=== PATIENT | male | born 1995 ===

== ENCOUNTER 2017-10-26 12:13 | Emergency (ER) | payer MEDICAID, OTHER ==
[2017-10-26 12:57] VITALS: RESP 18; TEMP 98.9; O2SAT 100
[2017-10-26] MEDS ORDERED: Lactated Ringer's 1,000 ML IVB STA (15:19)
[2017-10-26 15:39] LABS: BASO # 0.1 K/uL (0.0-0.2); BASO % 0.6 % (0.0-2.0); EOS # 0.1 K/uL (0.0-0.7); EOS % 0.7 % (0.0-4.0); HEMOGLOBIN 13.9 g/dL (12.0-18.0); LYMPH # 1.1 K/uL (1.0-4.3); MEAN CELL VOLUME 92.6 fL (80.0-94.0); MEAN CORPUSCULAR HEMOGLOBIN 31.2 pg (27.0-31.0); MEAN CORPUSCULAR HGB CONC 33.7 g/dL (33.0-37.0); MEAN PLATELET VOLUME 9.6 fL (7.2-11.7); MONO # 1.3 K/uL (0.0-0.8); MONO % 15.9 % (0.0-10.0); NEUT # 5.9 K/uL (1.8-7.0); NEUT % 69.8 % (50.0-75.0); RBC 4.47 Mil/uL (4.40-5.90); RED CELL DISTRIBUTION WIDTH 13.2 % (11.5-14.5); WHITE BLOOD COUNT 8.4 K/uL (4.8-10.8)
[2017-10-26 15:51] LABS: ALB/GLOB RATIO 1.1 (1.0-2.1); ALBUMIN 3.9 g/dL (3.5-5.0); ALT/SGPT 37 U/L (21-72); AST/SGOT 20 U/L (17-59); BLOOD UREA NITROGEN 10 mg/dL (9-20); CALCIUM 8.5 mg/dl (8.6-10.4); GFR AFRICAN-AMERICAN > 60; GFR NON-AFRICAN AMERICAN > 60
[2017-10-26 15:54] LABS: INFLUENZA A B NEGATIVE FOR FLU A/B (NEGATIVE)
[2017-10-26 16:35] LABS: URINE BILIRUBIN NEGATIVE (NEGATIVE); URINE BLOOD NEGATIVE (NEGATIVE); URINE CLARITY Clear (Clear); URINE COLOR Yellow (YELLOW); URINE GLUCOSE (UA) NORMAL (Normal); URINE LEUKOCYTE ESTERASE NEG Leu/uL (Negative); URINE NITRATE NEGATIVE (NEGATIVE); URINE PROTEIN 1+ mg/dL (NEGATIVE); URINE UROBILINOGEN NORMAL mg/dL (0.2-1.0)
--- NOTE | 2017-10-26 16:46 | C.PDOC ---
Time Seen by Provider: 10/26/17 15:03 Chief Complaint (Nursing): Flu-like Symptoms History Per: Patient Onset/Duration Of Symptoms: Days (3) Current Symptoms Are (Timing): Still Present Associated Symptoms: Chills, Myalgias, Diarrhea Severity: Moderate Additional History Per: Prior Records Past Medical History Reviewed: Historical Data, Nursing Documentation, Vital Signs Vital Signs: Last Vital Signs Temp 98.9 F 10/26/17 12:54 Pulse 116 H 10/26/17 12:54 Resp 18 10/26/17 12:54 BP 136/81 10/26/17 12:54 Pulse Ox 100 10/26/17 12:54 - Medical History PMH: HTN Surgical History: No Surg Hx Family History: States: Unknown Family Hx - Social History Hx Alcohol Use: No Hx Substance Use: No - Immunization History Hx Tetanus Toxoid Vaccination: No Hx Influenza Vaccination: No Hx Pneumococcal Vaccination: No Review Of Systems Except As Marked, All Systems Reviewed And Found Negative. Constitutional: Positive for: Fever (subjective) ENT: Negative for: Ear Pain, Nose Congestion Cardiovascular: Negative for: Chest Pain Respiratory: Negative for: Cough, Shortness of Breath Gastrointestinal: Positive for: Abdominal Pain, Diarrhea. Negative for: Vomiting, Melena, Hematochezia, Hematemesis Genitourinary: Negative for: Dysuria Musculoskeletal: Negative for: Neck Pain, Back Pain Skin: Negative for: Rash Neurological: Negative for: Weakness, Numbness, Seizures, Altered Mental Status Physical Exam - Physical Exam Appears: Non-toxic, No Acute Distress Skin: Normal Color, Warm, Dry, No Rash Head: Atraumatic, Normacephalic Eye(s): bilateral: Normal Inspection, PERRL, EOMI Throat: No Drooling, No Mass, Other (symmetrically enlarged tonsils) Neck: Normal ROM, Supple Lymphatic: No Adenopathy Cardiovascular: Rhythm Regular Respiratory: Normal Breath Sounds, No Accessory Muscle Use Gastrointestinal/Abdominal: Soft, Tenderness (mild, nonspecific), No Distention , No Guarding, No Rebound Back: No CVA Tenderness Extremity: Normal ROM Neurological/Psych: Oriented x3, Normal Motor, Normal Sensation ED Course And Treatment - Laboratory Results Result Diagrams: 10/26/17 15:36 10/26/17 15:36 Lab Interpretation: No Acute Changes O2 Sat by Pulse Oximetry: 100 Pulse Ox Interpretation: Normal Progress Note: No abdominal pain or tenderness after meds. Reassessment Condition: Improved Progress - Interventions Interventions:: Observation, Intravenous fluid - Medications Administered Intravenous: NSAID - Data Reviewed Data Reviewed: Lab, Old records - Patient Status Patient status: Mostly improved - Continuity of Care Discussed patient case with:: Patient, ED Nurse - Patient Plan Patient Plan: Discharge, F/U with PCP Disposition Counseled Patient/Family Regarding: Studies Performed, Diagnosis, Need For Followup, Rx Given - Disposition Referrals: [facility] at [facility] [Outside] Disposition: HOME/ ROUTINE Disposition Time: 16:47 Condition: IMPROVED Additional Instructions: Drink plenty of fluids. Follow up in the clinic. Return to the ER if you develop high fever, vomiting, bloody stools, worsening of symptoms or if you have any other concerns. Prescriptions: Bismuth Subsalicylate [Pepto Bismol] 2 tab PO Q1 PRN #16 ctb PRN Reason: Diarrhea Instructions: Acute Diarrhea (ED) Print Language: [place] - Clinical Impression Clinical Impression: Influenza-like illness, Diarrhea
[2017-10-26 16:56] VITALS: BP 137/77; PULSE 93
== END 2017-10-26 16:57 | disposition home or self-care (01) ==
LOC: C.ER 12:13
DX: J11.1 Influenza due to unidentified influenza virus with other respiratory manifestations (principal); R19.7 Diarrhea, unspecified
CPT/HCPCS: 80053; 81001; 85025; 86308; 87804; 96374; 99285; J1885; J7120

== ENCOUNTER 2017-10-27 07:41 | Emergency (ER) | payer MEDICAID, OTHER ==
[2017-10-27 08:05] VITALS: RESP 18
--- NOTE | 2017-10-27 08:25 | C.PDOC ---
History Of Present Illness 22-year-old male, presents to the emergency department with complaints of five- day duration of rectal pain. Patient states he was seen in clinic yesterday for same complaint and given unknown pain medication. He reports mild associated subjective fever. Denies any abdominal pain, fever, chills, shortness of breath , bloody stool, or any other associated symptoms. No other complaints at this time. Chief Complaint (Nursing): GI Problem History Per: Patient History/Exam Limitations: no limitations Onset/Duration Of Symptoms: Days Current Symptoms Are (Timing): Still Present Past Medical History Reviewed: Historical Data, Nursing Documentation, Vital Signs Vital Signs: Last Vital Signs Temp 98.4 F 10/27/17 08:40 Pulse 86 10/27/17 08:40 Resp 18 10/27/17 08:40 BP 138/78 10/27/17 08:40 Pulse Ox 99 10/27/17 08:40 - Medical History PMH: HTN Family History: States: No Known Family Hx - Social History Hx Alcohol Use: No Hx Substance Use: No - Immunization History Hx Tetanus Toxoid Vaccination: No Hx Influenza Vaccination: No Hx Pneumococcal Vaccination: No Review Of Systems Constitutional: Positive for: Fever Cardiovascular: Negative for: Chest Pain Respiratory: Negative for: Shortness of Breath Gastrointestinal: Positive for: Rectal Pain. Negative for: Vomiting, Abdominal Pain Physical Exam - Physical Exam Appears: Non-toxic, No Acute Distress Skin: Warm, Dry, No Rash Eye(s): bilateral: Normal Inspection Neck: Normal ROM Cardiovascular: Rhythm Regular, No Murmur Respiratory: Normal Breath Sounds, No Accessory Muscle Use Gastrointestinal/Abdominal: Soft, No Tenderness Rectal: Other (fissures) Extremity: Normal ROM Neurological/Psych: Oriented x3 ED Course And Treatment O2 Sat by Pulse Oximetry: 98 (RA) Disposition - Disposition Referrals: Ramu Grijalva MD [Staff Provider] - Disposition: HOME/ ROUTINE Disposition Time: 08:23 Condition: GOOD Prescriptions: Docusate [Colace] 100 mg PO TID #21 cap Hydrocortisone 2.5% (Rectal) [Anusol-HC] 30 applic [place] BID #14 tube Instructions: Rectal Bleeding (ED), Anal Fissure (ED) Forms: [employer] (Georgian) Print Language: SENEGALESE - Clinical Impression Clinical Impression: Rectal fissure - Scribe Statement The provider has reviewed the documentation as recorded by the Scribe (Terrance Ruiz) All medical record entries made by the Scribe were at my direction and personally dictated by me. I have reviewed the chart and agree that the record accurately reflects my personal performance of the history, physical exam, medical decision making, and the department course for this patient. I have also personally directed, reviewed, and agree with the discharge instructions and disposition.
--- NOTE | 2017-10-27 08:27 | C.PDOC ---
Chief Complaint (Nursing): GI Problem Past Medical History Vital Signs: Last Vital Signs Temp 98.2 F 10/27/17 08:02 Pulse 93 H 10/27/17 08:02 Resp 18 10/27/17 08:02 BP 144/82 10/27/17 08:02 Pulse Ox 98 10/27/17 08:02 - Medical History PMH: HTN Family History: States: Unknown Family Hx - Social History Hx Alcohol Use: No Hx Substance Use: No - Immunization History Hx Tetanus Toxoid Vaccination: No Hx Influenza Vaccination: No Hx Pneumococcal Vaccination: No ED Course And Treatment O2 Sat by Pulse Oximetry: 98 Disposition - Disposition Referrals: Ramu Grijalva MD [Staff Provider] - Disposition: HOME/ ROUTINE Disposition Time: 08:23 Condition: GOOD Prescriptions: Docusate [Colace] 100 mg PO TID #21 cap Hydrocortisone 2.5% (Rectal) [Anusol-HC] 30 applic [place] BID #14 tube Instructions: Rectal Bleeding (ED), Anal Fissure (ED) Print Language: ENGLISH - Clinical Impression Clinical Impression: Rectal fissure
[2017-10-27 08:41] VITALS: BP 138/78; PULSE 86; TEMP 98.4
[2017-10-27 14:25] VITALS: O2SAT 98
== END 2017-10-27 08:47 | disposition home or self-care (01) ==
LOC: C.ER 07:41
DX: K60.2 Anal fissure, unspecified (principal)

== ENCOUNTER 2017-10-28 18:27 | Emergency (ER) | payer MEDICAID ==
[2017-10-28 18:33] VITALS: O2SAT 98
--- NOTE | 2017-10-28 19:57 | C.PDOC ---
History Of Present Illness 22 y/o male, with history of HTN, presents to the ER complaining of persistent subjective fever, chills, and headache. Patient states that he was seen 2 days ago in the ER for flu-like symptoms with associated diarrhea at the time. The labwork was unremarkable. Patient was given Pepto Bismol and discharged home. Patient visited the ER yesterday complaining of rectal pain. He was diagnosed with rectal fissure. He was given topical creams and discharged home. Of note, patient ran out of his bp medications so his bp is elevated. He denies having any abdominal pain, nausea, vomiting, diarrhea, cough, congestion, sore throat, and other complaints. Time Seen by Provider: 10/28/17 19:31 Chief Complaint (Nursing): High Blood Pressure History Per: Patient History/Exam Limitations: no limitations Onset/Duration Of Symptoms: Days Current Symptoms Are (Timing): Still Present Severity: Moderate Past Medical History Reviewed: Historical Data, Nursing Documentation, Vital Signs Vital Signs: Last Vital Signs Temp 98 F 10/28/17 22:01 Pulse 89 10/28/17 22:01 Resp 16 10/28/17 22:01 BP 126/79 10/28/17 22:01 Pulse Ox 98 10/28/17 22:01 - Medical History PMH: HTN Surgical History: No Surg Hx Family History: States: No Known Family Hx - Social History Hx Alcohol Use: No Hx Substance Use: No - Immunization History Hx Tetanus Toxoid Vaccination: No Hx Influenza Vaccination: No Hx Pneumococcal Vaccination: No Review Of Systems Except As Marked, All Systems Reviewed And Found Negative. Constitutional: Positive for: Fever, Chills ENT: Negative for: Nose Congestion, Throat Pain Gastrointestinal: Negative for: Nausea, Vomiting, Abdominal Pain, Diarrhea Neurological: Positive for: Headache Physical Exam - Physical Exam Appears: Non-toxic, No Acute Distress Skin: Normal Color, Warm Head: Atraumatic, Normacephalic Eye(s): bilateral: Normal Inspection Ear(s): Bilateral: Normal Nose: Normal Oral Mucosa: Moist Throat: Normal, No Erythema, No Exudate Neck: Supple Chest: Symmetrical Cardiovascular: Rhythm Regular Respiratory: Normal Breath Sounds, No Accessory Muscle Use, No Rales, No Rhonchi , No Wheezing Extremity: Normal ROM Neurological/Psych: Oriented x3, Normal Speech, Normal Motor, Normal Sensation ED Course And Treatment - Laboratory Results Result Diagrams: 10/28/17 20:24 10/28/17 20:24 Lab Interpretation: Normal O2 Sat by Pulse Oximetry: 98 (RA) Pulse Ox Interpretation: Normal Reevaluation Time: 22:14 Reassessment Condition: Improved (Blood pressure and heart rate normal after po Lopressor.) Medical Decision Making Medical Decision Making: Plan: --Labs --Flu Swab --UA Disposition Counseled Patient/Family Regarding: Studies Performed, Diagnosis, Need For Followup, Rx Given - Disposition Referrals: [facility] [Outside] Disposition: HOME/ ROUTINE Disposition Time: 22:20 Condition: IMPROVED Prescriptions: Enalapril Maleate [Vasotec] 20 mg PO DAILY #90 tab Instructions: Hypertension (ED) Forms: [employer] (Fijian) Print Language: DANISH - Clinical Impression Clinical Impression: Hypertension - Scribe Statement The provider has reviewed the documentation as recorded by the Tereso Sutherland Provider Attestation: All medical record entries made by the Scribe were at my direction and personally dictated by me. I have reviewed the chart and agree that the record accurately reflects my personal performance of the history, physical exam, medical decision making, and the department course for this patient. I have also personally directed, reviewed, and agree with the discharge instructions and disposition.
[2017-10-28 20:33] LABS: BASO % 0.5 % (0.0-2.0); EOS # 0.2 K/uL (0.0-0.7); EOS % 2.2 % (0.0-4.0); HEMOGLOBIN 13.4 g/dL (12.0-18.0); LYMPH # 1.7 K/uL (1.0-4.3); LYMPH % 19.9 % (20.0-40.0); MEAN CELL VOLUME 91.7 fL (80.0-94.0); MEAN CORPUSCULAR HGB CONC 33.8 g/dL (33.0-37.0); MEAN PLATELET VOLUME 9.3 fL (7.2-11.7); MONO # 0.8 K/uL (0.0-0.8); MONO % 9.8 % (0.0-10.0); NEUT # 5.7 K/uL (1.8-7.0); NEUT % 67.6 % (50.0-75.0); NRBC % 0.1 % (0.0-2.0); RBC 4.32 Mil/uL (4.40-5.90); RED CELL DISTRIBUTION WIDTH 12.8 % (11.5-14.5); WHITE BLOOD COUNT 8.5 K/uL (4.8-10.8)
[2017-10-28 20:42] LABS: SQUAMOUS EPITHIAL < 1 /hpf (0-5); URINE BACTERIA RARE (<OCC); URINE BILIRUBIN NEGATIVE (NEGATIVE); URINE BLOOD NEGATIVE (NEGATIVE); URINE CLARITY Clear (Clear); URINE COLOR Yellow (YELLOW); URINE GLUCOSE (UA) NORMAL (Normal); URINE LEUKOCYTE ESTERASE NEG Leu/uL (Negative); URINE NITRATE NEGATIVE (NEGATIVE); URINE PROTEIN NEGATIVE (NEGATIVE); URINE UROBILINOGEN NORMAL mg/dL (0.2-1.0)
[2017-10-28 20:46] LABS: ALBUMIN 3.8 g/dL (3.5-5.0); ALT/SGPT 34 U/L (21-72); AST/SGOT 26 U/L (17-59); BLOOD UREA NITROGEN 9 mg/dL (9-20); CALCIUM 8.7 mg/dl (8.6-10.4); GFR AFRICAN-AMERICAN > 60; GFR NON-AFRICAN AMERICAN > 60
[2017-10-28 22:02] VITALS: BP 126/79; PULSE 89; RESP 16; TEMP 98
== END 2017-10-28 22:52 | disposition home or self-care (01) ==
LOC: C.ER 18:27
DX: I10 Essential (primary) hypertension (principal)

== ENCOUNTER 2017-11-03 19:35 | Emergency (ER) | payer MEDICAID ==
[2017-11-03 20:11] VITALS: O2SAT 100
--- NOTE | 2017-11-03 21:21 | C.PDOC ---
History Of Present Illness <DerasKaitlin WeberJocelyn - Last Filed: 11/03/17 21:48> <Yasemin Antonio - Last Filed: 11/04/17 06:20> CC: "I can't urinate" HPI: 22 year old male with past medical history of HTN who presents to the ED with the complaint that he cannot urinate. He states the last time he was able to urinate was yesterday Thursday11/02/17 at 6pm with hesitancy. He states today he had a very small urination at 3pm. He denies seeing blood in his urine yesterday. He states this has never happened before. He states he also has lower pelvic pain that started today. He denies nausea, vomiting fever, diarrhea or constipation. PMD: denies Past Medical History: HTN, rectal fissures Sexual History: denies STIs, one sexual partner this year, homosexual orientation, anal sex Surgical History: denies Medications: Enalapril 40mg po HS Allergies: NKDA Family History: Mom - HTN; Dad DM (BraedenKaitlin S.) History Per: Patient History/Exam Limitations: no limitations Onset/Duration Of Symptoms: Days Current Symptoms Are (Timing): Still Present <BraedenKaitlin S. - Last Filed: 11/03/17 21:48> <Yasemin Antonio - Last Filed: 11/04/17 06:20> Chief Complaint (Nursing): Abdominal Pain Past Medical History - Medical History PMH: HTN Family History: States: Unknown Family Hx - Social History Hx Alcohol Use: No Hx Substance Use: No - Immunization History Hx Tetanus Toxoid Vaccination: No Hx Influenza Vaccination: No Hx Pneumococcal Vaccination: No <DerasKaitlin crouchJocelyn - Last Filed: 11/03/17 21:48> Vital Signs: Last Vital Signs Temp 98.9 F 11/03/17 22:04 Pulse 95 H 11/03/17 22:04 Resp 18 11/03/17 22:04 BP 129/77 11/03/17 22:04 Pulse Ox 100 11/03/17 22:04 Review Of Systems Constitutional: Negative for: Fever, Chills Cardiovascular: Negative for: Chest Pain, Palpitations Respiratory: Negative for: Cough, Shortness of Breath Gastrointestinal: Positive for: Abdominal Pain (lower abdominal/pelvic pain ). Negative for: Nausea, Vomiting, Diarrhea, Constipation Genitourinary: Positive for: Dysuria. Negative for: Hematuria, Penile Discharge , Penile Pain <Kaitlin Deras - Last Filed: 11/03/17 21:48> Physical Exam - Physical Exam Appears: Well Skin: Normal Color Head: Atraumatic Eye(s): bilateral: Normal Inspection, PERRL, EOMI Oral Mucosa: Moist Cardiovascular: Rhythm Regular, No Murmur Respiratory: Normal Breath Sounds, No Decreased Breath Sounds, No Accessory Muscle Use, No Rales, No Rhonchi, No Stridor, No Wheezing Gastrointestinal/Abdominal: Bowel Sounds (normal), Soft, Tenderness (lower pelvic tenderness ), No Distention Rectal: Tenderness, Other (anal fold - erythematus ) Extremity: No Tenderness, No Pedal Edema Neurological/Psych: Oriented x3, Normal Speech, Normal Cognition <Kaitlin Deras - Last Filed: 11/03/17 21:48> ED Course And Treatment O2 Sat by Pulse Oximetry: 100 <Kaitlin Deras - Last Filed: 11/03/17 21:48> - Laboratory Results Result Diagrams: 11/03/17 21:51 11/03/17 21:51 <Yasemin Antonio - Last Filed: 11/04/17 06:20> Medical Decision Making <Kaitlin Deras - Last Filed: 11/03/17 21:48> <Yasemin Antonio - Last Filed: 11/04/17 06:20> Medical Decision Making: urinary retention - bladder scan: 473cc - urinary cath once - f/u UA, urine GC/chlamydia - Azythromycin 1,000mg po once - Ceftriaxone 250mg IM once - f/u cbc, cmp (Kaitlin Deras) Disposition <Kaitlin Deras - Last Filed: 11/03/17 21:48> - Disposition Disposition Time: 06:20 <Yasemin Antonio - Last Filed: 11/04/17 06:20> - Disposition Referrals: [facility] at [facility] [Outside] Disposition: HOME/ ROUTINE Condition: GOOD Additional Instructions: Please call [phone] to schedule an appointment at [facility] in 1-2 weeks. Please return to the emergency room if symptoms return or worsen. Prescriptions: Acetaminophen/Hydrocodone Bi [Vicodin 300 mg-5 mg] 1 tab PO TID PRN #12 tab PRN Reason: Pain, Mild (1-3) Instructions: Prostatitis (ED), Urinary Retention in Men (ED) Forms: [employer] (Portuguese) Print Language: ICELANDIC - Clinical Impression Clinical Impression: Prostatitis
[2017-11-03] MEDS ORDERED: cefTRIAXone (Rocephin) 250 mg Inj IM STA (21:44)
[2017-11-03 21:56] LABS: BASO # 0.1 K/uL (0.0-0.2); BASO % 0.6 % (0.0-2.0); EOS # 0.1 K/uL (0.0-0.7); EOS % 0.8 % (0.0-4.0); LYMPH # 1.6 K/uL (1.0-4.3); LYMPH % 12.5 % (20.0-40.0); MEAN CELL VOLUME 91.5 fL (80.0-94.0); MEAN CORPUSCULAR HGB CONC 33.8 g/dL (33.0-37.0); MEAN PLATELET VOLUME 9.5 fL (7.2-11.7); MONO # 1.1 K/uL (0.0-0.8); NEUT # 9.7 K/uL (1.8-7.0); NEUT % 77.1 % (50.0-75.0); NRBC % 0.1 % (0.0-2.0); RBC 4.51 Mil/uL (4.40-5.90); RED CELL DISTRIBUTION WIDTH 12.7 % (11.5-14.5); WHITE BLOOD COUNT 12.6 K/uL (4.8-10.8)
[2017-11-03 22:02] LABS: SQUAMOUS EPITHIAL < 1 /hpf (0-5); URINE BILIRUBIN NEGATIVE (NEGATIVE); URINE BLOOD NEGATIVE (NEGATIVE); URINE CLARITY Clear (Clear); URINE COLOR Yellow (YELLOW); URINE GLUCOSE (UA) NORMAL (Normal); URINE LEUKOCYTE ESTERASE NEG Leu/uL (Negative); URINE NITRATE NEGATIVE (NEGATIVE); URINE PROTEIN NEGATIVE (NEGATIVE)
[2017-11-03 22:05] VITALS: BP 129/77; PULSE 95; RESP 18; TEMP 98.9
[2017-11-03 22:13] LABS: ALBUMIN 4.2 g/dL (3.5-5.0); ALT/SGPT 27 U/L (21-72); AST/SGOT 23 U/L (17-59); BLOOD UREA NITROGEN 14 mg/dL (9-20); CALCIUM 9.9 mg/dl (8.6-10.4); GFR AFRICAN-AMERICAN > 60; GFR NON-AFRICAN AMERICAN > 60
== END 2017-11-03 23:23 | disposition home or self-care (01) ==
LOC: C.ER 19:35
DX: N41.9 Inflammatory disease of prostate, unspecified (principal); I10 Essential (primary) hypertension
CPT/HCPCS: 80053; 81001; 85025; 87491; 87591; 96372; 99285; J0696

== ENCOUNTER 2017-11-10 10:45 | Emergency (ER) | payer MEDICAID ==
[2017-11-10 10:57] VITALS: BMI 33.9
[2017-11-10 10:59] VITALS: O2SAT 98
--- NOTE | 2017-11-10 11:49 | C.PDOC ---
History Of Present Illness 22 y/o male presents to ED with complaints of constipation for 8 days with associated fullness feeling to abdomen and rectum. Patient was seen last week for urine and prostate problems, states the pain got better with pain killer. Patient denies fever, nausea, vomiting or rectal bleeding. Time Seen by Provider: 11/10/17 11:39 Chief Complaint (Nursing): GI Problem History Per: Patient History/Exam Limitations: no limitations Onset/Duration Of Symptoms: Days Current Symptoms Are (Timing): Still Present Past Medical History Reviewed: Historical Data, Nursing Documentation, Vital Signs Vital Signs: Last Vital Signs Temp 98.9 F 11/10/17 13:28 Pulse 91 H 11/10/17 13:28 Resp 20 11/10/17 13:28 BP 134/84 11/10/17 13:28 Pulse Ox 98 11/10/17 14:54 - Medical History PMH: HTN Surgical History: No Surg Hx Family History: States: No Known Family Hx - Social History Hx Alcohol Use: No Hx Substance Use: No - Immunization History Hx Tetanus Toxoid Vaccination: No Hx Influenza Vaccination: No Hx Pneumococcal Vaccination: No Review Of Systems Constitutional: Negative for: Fever, Chills Gastrointestinal: Positive for: Constipation. Negative for: Nausea, Vomiting, Hematochezia Musculoskeletal: Negative for: Back Pain Physical Exam - Physical Exam Appears: Non-toxic, No Acute Distress Skin: Warm, Dry, No Rash Head: Atraumatic, Normacephalic Eye(s): bilateral: Normal Inspection, EOMI Oral Mucosa: Moist Neck: Normal ROM, Supple Chest: Symmetrical Cardiovascular: Rhythm Regular, No Murmur Respiratory: Normal Breath Sounds, No Rales, No Rhonchi, No Wheezing Gastrointestinal/Abdominal: Bowel Sounds (active), Soft, No Tenderness, No Distention, No Guarding, No Rebound, No Hernia Extremity: Bilateral: Atraumatic, Normal Color And Temperature, Normal ROM Neurological/Psych: Oriented x3, Normal Speech ED Course And Treatment O2 Sat by Pulse Oximetry: 98 (RA) Pulse Ox Interpretation: Normal - Other Rad Obstructive series X-Ray: Viewed By Me, Read By Radiologist Interpretation: PROCEDURE: Radiographs of the chest and abdomen (obstructive series). HISTORY: constipation and pain 1 wk. COMPARISON: None available. TECHNIQUE: AP radiograph of the chest, with upright and supine radiographs of the abdomen. FINDINGS: CHEST: The cardiomediastinal silhouette appears unremarkable. No focal consolidation. No pleural effusion. No pneumothorax. ABDOMEN AND PELVIS: Nonobstructive bowel gas pattern. No definite free air. Moderate diffuse constipation. No acute osseous abnormality is detected. IMPRESSION: Moderate diffuse constipation. Medical Decision Making Medical Decision Making: Impression: Constipation Prior records Reviewed: Patient seen on 11/02/17 for urinary symptoms and prostatitis. Patient treated for STD and given Vicodin Vicodin is likely to have caused constipation Plan: Obstructive series Xray ordered Progress: Xray shows moderate fecal retention Re-eval: Patient remained well, seated comfortably in chair in no distress. Abdomen soft, non-distended and nontender. Patient has stable vital signs and stable for discharge. I advised patient to take laxatives and to increase water and fiber intake to help with constipation. Disposition Counseled Patient/Family Regarding: Diagnosis, Need For Followup, Rx Given - Disposition Referrals: [facility] [Outside] [facility] [employer] [facility] [Outside] Disposition: HOME/ ROUTINE Disposition Time: 13:30 Condition: GOOD Additional Instructions: Take laxatives for constipation Drink more water and eat more fiber Prescriptions: Docusate [Colace] 100 mg PO TID PRN #30 cap PRN Reason: Constipation Polyethylene Glycol 3350 [Miralax] 17 gm PO ONCE 1 Days #1 powd.pack Instructions: High Fiber Diet, Constipation, Adult (DC) Forms: [employer] (Lao) Print Language: CITIZEN OF [place] - POA Present On Arrival: None - Clinical Impression Clinical Impression: Constipation - PA / QUALITY CONTROLLER / Resident Statement MD/DO has reviewed & agrees with the documentation as recorded. - Scribe Statement The provider has reviewed the documentation as recorded by the Tereso Mast All medical record entries made by the Tereso were at my direction and personally dictated by me. I have reviewed the chart and agree that the record accurately reflects my personal performance of the history, physical exam, medical decision making, and the department course for this patient. I have also personally directed, reviewed, and agree with the discharge instructions and disposition.
--- NOTE | 2017-11-10 12:52 | RAD ---
PROCEDURE: Radiographs of the chest and abdomen (obstructive series) HISTORY: constipation and pain 1 wk COMPARISON: None available. TECHNIQUE: AP radiograph of the chest, with upright and supine radiographs of the abdomen. FINDINGS: CHEST: The cardiomediastinal silhouette appears unremarkable. No focal consolidation. No pleural effusion. No pneumothorax. ABDOMEN AND PELVIS: Nonobstructive bowel gas pattern. No definite free air. Moderate diffuse constipation. No acute osseous abnormality is detected. IMPRESSION: Moderate diffuse constipation.
[2017-11-10 13:29] VITALS: BP 134/84; PULSE 91; RESP 20; TEMP 98.9
== END 2017-11-10 13:30 | disposition home or self-care (01) ==
LOC: C.ER 10:45
DX: K59.00 Constipation, unspecified (principal)

== ENCOUNTER 2018-06-22 19:56 | Emergency (ER) | payer MEDICAID, OTHER ==
[2018-06-22 19:56] VITALS: BMI 34.7
[2018-06-22 20:32] VITALS: RESP 16
[2018-06-22 21:43] LABS: URINE BILIRUBIN NEGATIVE (NEGATIVE); URINE BLOOD NEGATIVE (NEGATIVE); URINE CLARITY Clear (Clear); URINE COLOR Yellow (YELLOW); URINE GLUCOSE (UA) NORMAL (Normal); URINE LEUKOCYTE ESTERASE NEG Leu/uL (Negative); URINE PROTEIN NEGATIVE (NEGATIVE); URINE UROBILINOGEN NORMAL mg/dL (0.2-1.0)
--- NOTE | 2018-06-22 23:11 | C.PDOC ---
History Of Present Illness 23 year old male presents to the ER with a complaint of bilateral testicular pain for the past 1 day. Denies penile discharge, trauma to the area, vomiting, dysuria, or hematuria. Chief Complaint (Nursing): Male Genitourinary History Per: Patient History/Exam Limitations: no limitations Onset/Duration Of Symptoms: Days Current Symptoms Are (Timing): Still Present Quality Of Discomfort: Unable To Describe Associated Symptoms: denies: Vomiting, Urinary Symptoms, Other (Penile discharge) Alleviating Factors: None Recent travel outside of the [place]: No Past Medical History Reviewed: Historical Data, Nursing Documentation, Vital Signs Vital Signs: Last Vital Signs Temp 98.9 F 06/22/18 20:28 Pulse 106 H 06/22/18 20:28 Resp 16 06/22/18 20:28 BP 144/86 06/22/18 20:28 Pulse Ox 100 06/22/18 20:28 - Medical History PMH: HTN Family History: States: Unknown Family Hx - Social History Hx Alcohol Use: No Hx Substance Use: No - Immunization History Hx Tetanus Toxoid Vaccination: No Hx Influenza Vaccination: No Hx Pneumococcal Vaccination: No Review Of Systems Constitutional: Negative for: Fever, Chills Cardiovascular: Negative for: Chest Pain, Palpitations Respiratory: Negative for: Cough, Shortness of Breath Gastrointestinal: Negative for: Vomiting Genitourinary: Positive for: Other (Testicular pain). Negative for: Dysuria, Hematuria, Penile Discharge Physical Exam - Physical Exam Appears: Non-toxic Skin: Warm, Dry Head: Atraumatic, Normacephalic Eye(s): bilateral: Normal Inspection Oral Mucosa: Moist Chest: Symmetrical, No Tenderness Cardiovascular: Rhythm Regular Respiratory: Normal Breath Sounds, No Rales, No Rhonchi, No Wheezing Gastrointestinal/Abdominal: Soft, No Tenderness Male Genital: No Testicular Tenderness, No Testicular Swelling, No Inguinal Tenderness, No Inguinal Swelling, No Scrotal Swelling Extremity: Other (Mild cellulitis to right upper thigh) Neurological/Psych: Oriented x3, Normal Speech ED Course And Treatment O2 Sat by Pulse Oximetry: 100 (Room air) Pulse Ox Interpretation: Normal Progress Note: Testicular US ordered. Disposition - Disposition Referrals: [facility] [Outside] [facility] [Outside] Disposition: HOME/ ROUTINE Disposition Time: 22:55 Condition: GOOD Additional Instructions: DEQUAN SANCHEZ, thank you for letting us take care of you today. The emergency medical care you received today was directed at your acute symptoms. If you were prescribed any medication, please fill it and take as directed. It may take several days for your symptoms to resolve. Return to the Emergency Department if your symptoms worsen, do not improve, or if you have any other problems. Please contact your doctor or call one of the physicians/clinics you have been referred to that are listed on the Patient Visit Information form that is included in your discharge packet. Bring any paperwork you were given at discharge with you along with any medications you are taking to your follow up visit. Our treatment cannot replace ongoing medical care by a primary care provider outside of the emergency department. Thank you for allowing the [facility] team to be part of your care today. Follow up with the clinic this week for re-evaluation and further management. Prescriptions: Cephalexin [cephalexin] 500 mg PO Q8 #21 cap Ibuprofen [Motrin] 600 mg PO Q6 PRN #20 tab PRN Reason: Pain, Moderate (4-7) Instructions: Cellulitis (Skin Infection), Adult (DC) Forms: [employer] (Azeri) - Clinical Impression Clinical Impression: Cellulitis - Scribe Statement The provider has reviewed the documentation as recorded by the Scribe Glenn Chamorro All medical record entries made by the Scribe were at my direction and personally dictated by me. I have reviewed the chart and agree that the record accurately reflects my personal performance of the history, physical exam, medical decision making, and the department course for this patient. I have also personally directed, reviewed, and agree with the discharge instructions and disposition.
[2018-06-22 23:13] VITALS: BP 142/81; PULSE 89; TEMP 98.7
[2018-06-23 03:08] VITALS: O2SAT 100
--- NOTE | 2018-06-23 08:22 | US ---
Testicular ultrasound HISTORY: Testicular pain. Comparison: None available. Technique: Real-time sonography was performed through the the scrotum. FINDINGS: Right testes: 4.1 x 2.0 x 2.7 centimeters. Homogeneous echotexture. Normal flow. Right epididymis measures 9.4 x 8.5 x 12.8 millimeters. Normal flow. Small right testicular varicocele noted. Left testes: 3.9 x 2.0 x 2.7 centimeters. Homogeneous echotexture. Normal flow. Left epididymis measures 1.1 x 1.6 x 1.4 centimeters. Multiple hypoechoic epididymal cysts measuring 8 x 6 x 8 millimeters, 6 x 3 x 5 millimeters and 3 x 3 x 4 millimeters. Small left testicular varicocele noted Impression: 1. Prominent left epididymal cysts. 2. Bilateral varicoceles noted. These findings were preliminarily reported at 10:49 p.m. on 06/22/[address] Lalo Choudhury from [employer].
== END 2018-06-22 23:29 | disposition home or self-care (01) ==
LOC: C.ER 19:56
DX: L03.115 Cellulitis of right lower limb (principal); I10 Essential (primary) hypertension

== ENCOUNTER 2018-11-18 22:51 | Emergency (ER) | payer SELFPAY ==
[2018-11-18 22:51] VITALS: BMI 34.7
[2018-11-18 23:08] VITALS: PULSE 90
--- NOTE | 2018-11-18 23:28 | C.PDOC ---
History Of Present Illness 23 year old male presents to the ED for evaluation of diarrhea which began 4 days ago. Patient has not taken any medicine for his symptoms. He denies fever, chills, vomiting. Time Seen by Provider: 11/18/18 23:28 Chief Complaint (Nursing): GI Problem History Per: Patient History/Exam Limitations: no limitations Onset/Duration Of Symptoms: Days (4) Current Symptoms Are (Timing): Still Present Severity: Mild Pain Scale Rating Of: 2 Radiation Of Pain To:: None Quality Of Discomfort: denies: "Pain" Associated Symptoms: Diarrhea. denies: Fever, Chills, Nausea Exacerbating Factors: None Alleviating Factors: None Last Bowel Movement: Today Recent travel outside of the [place]: No Additional History Per: Patient Past Medical History Reviewed: Historical Data, Nursing Documentation, Vital Signs Vital Signs: Last Vital Signs Temp 97.8 F 11/18/18 23:06 Pulse 90 11/18/18 23:06 Resp 16 11/18/18 23:06 BP 158/80 H 11/18/18 23:06 Pulse Ox 98 11/18/18 23:06 - Medical History PMH: HTN Surgical History: No Surg Hx Family History: States: Unknown Family Hx - Social History Hx Alcohol Use: No Hx Substance Use: No - Immunization History Hx Tetanus Toxoid Vaccination: No Hx Influenza Vaccination: No Hx Pneumococcal Vaccination: No Review Of Systems Constitutional: Negative for: Fever, Chills Cardiovascular: Negative for: Chest Pain, Palpitations Respiratory: Negative for: Cough, Shortness of Breath Gastrointestinal: Positive for: Diarrhea. Negative for: Nausea, Vomiting, Abdominal Pain, Constipation, Hematochezia Genitourinary: Negative for: Dysuria, Frequency, Hematuria Skin: Negative for: Rash, Lesions, Jaundice, Bruising Neurological: Negative for: Weakness, Numbness Physical Exam - Physical Exam Appears: Non-toxic, No Acute Distress Skin: Warm, Dry Head: Normacephalic Eye(s): bilateral: Normal Inspection Oral Mucosa: Moist Neck: Supple Chest: Symmetrical, No Deformity Cardiovascular: Rhythm Regular Respiratory: No Rales, No Rhonchi, No Wheezing Gastrointestinal/Abdominal: Soft, No Tenderness, No Guarding, No Rebound Extremity: Normal ROM, Capillary Refill (less than 2 seconds ) Neurological/Psych: Oriented x3 ED Course And Treatment - Laboratory Results Result Diagrams: 11/18/18 23:36 11/18/18 23:36 O2 Sat by Pulse Oximetry: 98 (on RA ) Pulse Ox Interpretation: Normal Progress Note: Bloodwork and urinalysis ordered. Protonix IVP given. Reevaluation Time: 01:41 Reassessment Condition: Improved Disposition Counseled Patient/Family Regarding: Studies Performed, Diagnosis, Need For Followup - Disposition Disposition: HOME/ ROUTINE Disposition Time: 23:28 Condition: FAIR Additional Instructions: Please return if symptoms recur. Do use [employer] for the diarrhea Instructions: Diarrhea in Adolescents and Adults Forms: [employer] (Tunisian) - Clinical Impression Clinical Impression: Diarrhea - Scribe Statement The provider has reviewed the documentation as recorded by the Scribe (Estefany Mendoza) Provider Attestation: All medical record entries made by the Scribe were at my direction and p ersonally dictated by me. I have reviewed the chart and agree that the record accurately reflects my personal performance of the history, physical exam, medical decision making, and the department course for this patient. I have also personally directed, reviewed, and agree with the discharge instructions and disposition.
[2018-11-18 23:39] LABS: BASO % 0.4 % (0.0-2.0); EOS # 0.1 K/uL (0.0-0.7); EOS % 1.3 % (0.0-4.0); HEMOGLOBIN 13.6 g/dL (12.0-18.0); LYMPH # 1.4 K/uL (1.0-4.3); LYMPH % 13.9 % (20.0-40.0); MEAN CELL VOLUME 93.8 fL (80.0-94.0); MEAN PLATELET VOLUME 9.8 fL (7.2-11.7); MONO # 0.7 K/uL (0.0-0.8); MONO % 7.2 % (0.0-10.0); NEUT # 7.9 K/uL (1.8-7.0); NEUT % 77.2 % (50.0-75.0); RBC 4.38 Mil/uL (4.40-5.90); RED CELL DISTRIBUTION WIDTH 12.6 % (11.5-14.5)
[2018-11-18 23:40] LABS: WHITE BLOOD COUNT 10.3 K/uL (4.8-10.8)
[2018-11-18 23:54] LABS: ALB/GLOB RATIO 1.5 (1.0-2.1); ALBUMIN 4.2 g/dL (3.5-5.0); ALT/SGPT 44 U/L (21-72); AST/SGOT 32 U/L (17-59); BLOOD UREA NITROGEN 18 mg/dL (9-20); CALCIUM 8.4 mg/dl (8.6-10.4); GFR NON-AFRICAN AMERICAN > 60; LIPASE 61 U/L (23-300)
[2018-11-19 01:47] VITALS: BP 123/79; RESP 14; TEMP 98.4; O2SAT 97
== END 2018-11-19 01:57 | disposition home or self-care (01) ==
LOC: C.ER 22:51
DX: R19.7 Diarrhea, unspecified (principal)
CPT/HCPCS: 80053; 83690; 85025; 96374; 99284; C9113